=== PATIENT | female | born 1995 | race African-American/Black ===

== ENCOUNTER 2020-09-16 16:17 | Emergency (ER) | payer OTHER, SELFPAY ==
[2020-09-16] MEDS ORDERED: Acetaminophen 500 MG TAB ONE (16:57)
[2020-09-17 02:13] LABS: SARS-CoV-2 PCR by NAA Not Detected (NotDetected)
== END 2020-09-16 17:30 | disposition home or self-care (01) ==
LOC: CSHERS 16:17
DX: J04.0 Acute laryngitis (principal); Z20.822 Contact with and (suspected) exposure to COVID-19
CPT/HCPCS: 87635; 99283; U0003; U0005

== ENCOUNTER 2021-05-19 18:05 | Emergency (ER) | payer SELFPAY | END 2021-05-19 21:05 | disposition home or self-care (01) | LOC: CSHERS 18:05 | DX: R06.02 Shortness of breath (principal) | CPT/HCPCS: 99284 ==